=== PATIENT | female | born 1975 | race African-American/Black ===

== ENCOUNTER 2018-12-02 17:04 | Emergency (ER) | payer MEDICARE, MEDICAID ==
[~2018-12-02] VITALS: Ht 170.2 cm; Wt 82.0 kg
[2018-12-02 21:52] VITALS: BP 127/85
== END 2018-12-02 21:53 | disposition home or self-care (01) ==
LOC: ER 17:04
DX: J45.901 Unspecified asthma with (acute) exacerbation (principal); R05 Cough; I10 Essential (primary) hypertension; F20.9 Schizophrenia, unspecified; F32.9 Major depressive disorder, single episode, unspecified
CPT/HCPCS: 81025; 93005; 99283

== ENCOUNTER 2018-12-04 09:35 | Emergency (ER) | payer MEDICARE, MEDICAID ==
[~2018-12-04] VITALS: Ht 170.2 cm; Wt 100.0 kg
[2018-12-04] MEDS ORDERED: ACETAMINOPHEN 325MG TABLET PO STA (10:31)
[2018-12-04] MEDS ORDERED: SODIUM CHLORIDE 0.9% 1,000 ML IV ONE (10:31)
[2018-12-04 13:28] VITALS: BP 110/65
== END 2018-12-04 13:30 | disposition home or self-care (01) ==
LOC: ER 09:35
DX: R55 Syncope and collapse (principal); G40.909 Epilepsy, unspecified, not intractable, without status epilepticus; F20.9 Schizophrenia, unspecified; I10 Essential (primary) hypertension; J45.909 Unspecified asthma, uncomplicated
CPT/HCPCS: 81025; 96360; 96361; 99283; J7030

== ENCOUNTER 2019-02-06 00:05 | Emergency (ER) | payer MEDICARE, MEDICAID ==
[~2019-02-06] VITALS: Ht 172.7 cm; Wt 100.0 kg
[2019-02-06] MEDS ORDERED: PREDNISONE 20MG TABLET PO ONE (00:45)
[2019-02-06 00:55] VITALS: BP 154/96
== END 2019-02-06 00:55 | disposition home or self-care (01) ==
LOC: ER 00:05
DX: J45.901 Unspecified asthma with (acute) exacerbation (principal); I10 Essential (primary) hypertension
CPT/HCPCS: 99283; J7512

== ENCOUNTER 2019-02-09 22:24 | Emergency (ER) | payer MEDICARE, MEDICAID ==
[~2019-02-09] VITALS: Ht 175.3 cm; Wt 87.0 kg
[2019-02-09] MEDS ORDERED: ALPRAZOLAM 0.5 MG TABLET PO ONE (23:15)
[2019-02-09 23:43] LABS: BASOPHILS % 0.9 % (0.0-2.0); HEMATOCRIT. 30.9 % (36.0-48.0); HEMOGLOBIN. 9.7 g/dL (12.0-16.0); LYMPHOCYTES % 15.7 % (20.0-50.0); MEAN CORPUSCULAR HEMOGLOBIN 22.2 pg (28.0-32.0); MEAN CORPUSCULAR VOLUME 70.6 fL (81.0-99.0); MEAN PLATELET VOLUME 8.5 fl (7.4-10.4); MONOCYTES % 2.1 % (2.0-8.0); NEUTROPHILS % 81.3 % (40.0-76.0); PLATELET 413 x1000/uL (130-400); RED BLOOD CELL COUNT 4.37 mill/uL (4.2-5.4); RED CELL DISTRIBUTION WIDTH 19.7 % (11.6-14.6)
[2019-02-09 23:49] LABS: CHLORIDE 107 mEq/L (98-107)
[2019-02-09 23:56] LABS: HCG SCREEN NEGATIVE
[2019-02-10 02:00] VITALS: BP 148/90
== END 2019-02-10 02:39 | disposition home or self-care (01) ==
LOC: ER 22:24
DX: R07.89 Other chest pain (principal); I10 Essential (primary) hypertension; F41.9 Anxiety disorder, unspecified; F32.9 Major depressive disorder, single episode, unspecified; J45.909 Unspecified asthma, uncomplicated
CPT/HCPCS: 36415; 71045; 83880; 84484; 84703; 93005; 99284

== ENCOUNTER 2019-02-15 11:32 | Emergency (ER) | payer MEDICARE, MEDICAID ==
[~2019-02-15] VITALS: Ht 172.7 cm; Wt 100.0 kg
[2019-02-15] MEDS ORDERED: LACTULOSE 20G/30ML UDC PO ONE (12:00)
[2019-02-15] MEDS ORDERED: ONDANSETRON HCL 4MG TABLET PO ONE (12:00)
[2019-02-15] MEDS ORDERED: MAGNESIUM CITRATE 300ML SOLUTION PO ONE (12:00)
[2019-02-15] MEDS ORDERED: NA PHOS,M-B/NA PHOS,DI-BA ENEMA 118ML PR ONE (12:15)
[2019-02-15 12:34] VITALS: BP 129/77
== END 2019-02-15 13:45 | disposition home or self-care (01) ==
LOC: ER 11:32
DX: K59.00 Constipation, unspecified (principal); R10.9 Unspecified abdominal pain; K62.89 Other specified diseases of anus and rectum; I10 Essential (primary) hypertension; F17.200 Nicotine dependence, unspecified, uncomplicated
CPT/HCPCS: 74018; 99284; Q0162

== ENCOUNTER 2022-04-15 07:39 | Inpatient (IN) | payer MEDICARE, MEDICAID ==
[~2022-04-15] VITALS: Ht 170.2 cm; Wt 99.8 kg
[2022-04-15] MEDS ORDERED: NITROGLYCERIN 0.4MG TABLET SL SL PRN (08:15)
[2022-04-15] MEDS ORDERED: ASPIRIN 81MG TABLET PO ONE (08:15)
[2022-04-15 08:44] LABS: BASOPHILS % 0.5 % (0.0-2.0); EOSINOPHILS % 0.9 % (0.0-5.0); HEMATOCRIT. 39.4 % (36.0-48.0); HEMOGLOBIN. 12.7 g/dL (12.0-16.0); LYMPHOCYTES % 35.6 % (20.0-50.0); MEAN CORPUSCULAR HEMOGLOBIN 24.9 pg (28.0-32.0); MEAN CORPUSCULAR VOLUME 77.1 fL (81.0-99.0); MEAN PLATELET VOLUME 8.9 fl (7.4-10.4); MONOCYTES % 7.8 % (2.0-8.0); NEUTROPHILS % 55.2 % (40.0-76.0); PLATELET 356 x1000/uL (130-400); RED BLOOD CELL COUNT 5.11 mill/uL (4.2-5.4); RED CELL DISTRIBUTION WIDTH 18.2 % (11.6-14.6)
[2022-04-15 08:48] LABS: CHLORIDE 104 mEq/L (98-107)
[2022-04-15 08:59] LABS: HCG SCREEN NEGATIVE
[2022-04-15] MEDS ORDERED: IOHEXOL-350 100 ML BOTTLE ONE (10:46)
[2022-04-15] MEDS ORDERED: FAMOTIDINE 20MG/2ML VIAL IV ONE (11:15)
[2022-04-15] MEDS ORDERED: GUAIFENESIN-DM 200MG-20MG/10ML UDC PO PRN (15:45)
[2022-04-15] MEDS ORDERED: ALBUTEROL (0.083%) 2.5MG/3ML NEB HHN PRN (15:45)
[2022-04-15] MEDS ORDERED: BENZONATATE 100MG CAPSULE PO SCH (15:45)
[2022-04-15 16:30] VITALS: BP 134/75
[2022-04-15] MEDS ORDERED: ACETAMINOPHEN 325MG TABLET PO PRN (16:45)
[2022-04-15 17:11] VITALS: BP 101/56
[2022-04-15] MEDS ORDERED: OMEP20CA14 PO (17:32)
[2022-04-15] MEDS ORDERED: AMLO10TA4 PO (17:33)
[2022-04-15] MEDS ORDERED: GABA-532 PO (17:33)
[2022-04-15] MEDS ORDERED: B50 MT (17:34)
[2022-04-15] MEDS: HYDROCODONE/ACETAMINOPHEN 5/325MG TABLET PO PRN (17:54)
[2022-04-15] MEDS ORDERED: AZITHROMYCIN 500 MG in DEXT 5% WATER 250 ML IV SCH (18:00)
[2022-04-15] MEDS ORDERED: CEFTRIAXONE 1,000 MG in DEXTROSE 5% WATER 50 ML IV SCH (18:00)
[2022-04-15] MEDS ORDERED: NALOXONE HCL 0.4MG/ML VIAL IV PRN (19:15)
[2022-04-15 19:27] LABS: HEPATITIS B SURFACE ANTIGEN NEGATIVE
[2022-04-15 20:00] VITALS: BP 133/81
[2022-04-15] MEDS ORDERED: IPRATROPIUM/ALBUTEROL 0.5-3(2.5)MG/3ML NEB HHN SCH (20:00)
[2022-04-15] MEDS: ENOXAPARIN 30MG/0.3ML SYR SUBCUT SCH (21:00)
[2022-04-15] MEDS ORDERED: MED4 MT (23:06)
[2022-04-15] MEDS ORDERED: AZIT250T12 MT (23:06)
[2022-04-15] MEDS ORDERED: ALBU6.7H15 INH (23:06)
[2022-04-15] MEDS ORDERED: FLUT1DIS6 INH (23:07)
[2022-04-16] VITALS: BP 96/53
[2022-04-16 04:00] VITALS: BP 128/62
[2022-04-16] MEDS: ALBUTEROL (0.083%) 2.5MG/3ML NEB HHN SCH ×4 (04:00→12:35)
[2022-04-16] MEDS: IPRATROPIUM BROMIDE (0.02%) 0.5MG/2.5ML NEB HHN SCH ×4 (04:00→12:35)
[2022-04-16] MEDS ORDERED: OMEPRAZOLE 20MG CAPSULE EXTENDED RELEASE PO SCH (06:40)
[2022-04-16 07:34] LABS: BASOPHILS % 0.8 % (0.0-2.0); EOSINOPHILS % 2.9 % (0.0-5.0); HEMATOCRIT. 34.5 % (36.0-48.0); HEMOGLOBIN. 11.1 g/dL (12.0-16.0); MEAN CORPUSCULAR HEMOGLOBIN 24.5 pg (28.0-32.0); MEAN CORPUSCULAR VOLUME 76.5 fL (81.0-99.0); MEAN PLATELET VOLUME 8.2 fl (7.4-10.4); MONOCYTES % 8.3 % (2.0-8.0); PLATELET 344 x1000/uL (130-400); RED BLOOD CELL COUNT 4.51 mill/uL (4.2-5.4); RED CELL DISTRIBUTION WIDTH 18.1 % (11.6-14.6)
[2022-04-16 07:36] LABS: CHLORIDE 105 mEq/L (98-107)
[2022-04-16 08:00] VITALS: BP 130/86
[2022-04-16] MEDS: ENOXAPARIN 30MG/0.3ML SYR SUBCUT SCH (08:54)
[2022-04-16] MEDS: HYDROCODONE/ACETAMINOPHEN 5/325MG TABLET PO PRN (08:55)
[2022-04-16] MEDS ORDERED: AMLODIPINE 5MG TABLET PO SCH (09:00)
[2022-04-16 12:00] VITALS: BP 108/65
[2022-04-16 14:05] VITALS: BP 108/65
[2022-04-17] MEDS ORDERED: AZITHROMYCIN 500 MG TABLET PO SCH (18:00)
== END 2022-04-16 14:45 | disposition home or self-care (01) | DRG 189 ==
LOC: ER 07:39 → 7EST 13:36 → EDBEDREQTM 13:42 → EDBEDREQ 13:42 → ENRESERV 14:22
PROVIDERS: ADMIT Internal Medicine; ATTEND Internal Medicine
DX: J96.00 Acute respiratory failure, unspecified whether with hypoxia or hypercapnia (principal); J44.1 Chronic obstructive pulmonary disease with (acute) exacerbation; J20.9 Acute bronchitis, unspecified; I10 Essential (primary) hypertension; F17.210 Nicotine dependence, cigarettes, uncomplicated; E66.9 Obesity, unspecified; Z68.34 Body mass index [BMI] 34.0-34.9, adult; Z59.00 Homelessness unspecified; Z79.899 Other long term (current) drug therapy
CPT/HCPCS: 36415; 71045; 71275; 80048; 80053; 83880; 84484; 84703; 85025; 85379; 86803; 87340; 87426; 87804; 93005; 93306; 94640; 99285; C9803; J0456; J0696; J1650; J3490; J7060; Q9967

== ENCOUNTER 2022-11-30 01:49 | Emergency (ER) | payer MEDICARE, MEDICAID ==
[~2022-11-30] VITALS: Ht 170.2 cm; Wt 93.6 kg
[~2022-11-30 01:49] MED LIST: ALBU6.7H15 INH; AMLO10TA4 PO; AZIT250T12 MT; B50 MT; FLUT1DIS6 INH; GABA-532 PO; MED4 MT; OMEP20CA14 PO
[2022-11-30 02:10] VITALS: BP 142/96; PULSE 91; RESP 18; TEMP 98.4; O2SAT 97
== END 2022-11-30 03:00 | disposition left against medical advice (07) ==
LOC: ER 01:49
DX: Z53.21 Procedure and treatment not carried out due to patient leaving prior to being seen by health care provider (principal)
CPT/HCPCS: 93005; 99281; 99283